=== PATIENT | female | born 1970 | race Two or more races ===

== ENCOUNTER 2022-10-07 09:04 | Emergency (ER) | payer BC, OTHER ==
[2022-10-07 09:23] VITALS: RESP 20; BMI 36.6
[2022-10-07] MEDS ORDERED: BEBTELOVIMAB (EUA) 175 MG/2 ML VIAL IVPUSH ONE (09:26)
[2022-10-07] MEDS ORDERED: ACETAMINOPHEN 500 MG TABLET (FP) PO ONE (09:48)
[2022-10-07 13:35] VITALS: BP 130/69; PULSE 81; TEMP 98.7
== END 2022-10-07 13:35 | disposition home or self-care (01) ==
LOC: JCOVINFU 09:04
PROC: 3E033GC Introduction of Other Therapeutic Substance into Peripheral Vein, Percutaneous Approach (ICD-10-PCS; principal; 2022-10-07)
DX: U07.1 COVID-19 (principal)
CPT/HCPCS: 99284-25; M0222; Q0222